=== PATIENT | female | born 1995 | race Caucasian/White ===

== ENCOUNTER 2016-10-30 16:45 | Emergency (ER) | payer OTHER ==
--- NOTE | 2016-10-30 17:18 | UCPHY ---
H & P Time Seen by Provider: 10/30/16 17:11 Patient Type: New HPI/ROS: HPI: 20-year-old female presents to urgent care with chief concern right 3rd finger discomfort and swelling at the finger tip. Onset over the past 3 days. She were acrylic nails for several weeks. They were removed 3 days ago. While she was at the nail spot having her nails removed, the nail as the tissue in cut this surface under my nail. There was minimal bleeding. She was then at the gym where it was germy." Reports mild swelling and discomfort of the right 3rd finger tip. Denies significant erythema, discharge, fever, chills, nausea, vomiting, joint pain. No history of significant infections. She is immunocompetent. Right-hand dominant. Up-to-date with tetanus. ROS:10 point review of systems is negative other than as stated in HPI Physical Exam: Vital signs stable, reviewed by me General: Awake, alert, calm, cooperative. No acute distress. Head: Normalocephalic. Atraumatic. EENT: PERRLA. EOMI. CV: Radial pulses 2+ bilaterally. Brisk cap refill. Neuro: Alert. Oriented x 3. Speech clear. Sensation intact all extremities. Skin: Skin warm, dry. Mild swelling with very minimal erythema of the right 3rd finger tip distal to the DIPJ. No fluctuance or induration. No discharge. Full range of motion. Sensation intact. Musculoskeletal: Strength 5+ all extremities. Allergies/Adverse Reactions: No Known Allergies Allergy (Unverified 10/30/16 17:19) Home Medications: Medication Instructions Recorded Cephalexin [Keflex (RX)] 500 mg PO TID #21 cap 10/30/16 Ocella 3 mg-0.03 mg Tablet 10/30/16 Medical Decision Making ED Course/Re-evaluation: Patient is afebrile and nontoxic. Symptoms are consistent with a very mild cellulitis of the right 3rd finger tip. Patient is very concerned about this. I will prescribe per week of Keflex. Differential Diagnosis: Cellulitis, abscess, paronychia Departure - Departure Disposition: Home, Routine, Self-Care Clinical Impression: Cellulitis Qualifiers: Site of cellulitis: extremity Site of cellulitis of extremity: finger Laterality: right Qualifier Code: (L03.011) Cellulitis of right finger Condition: Good Instructions: Cellulitis (ED) Additional Instructions: Plan: Warm water soaks 3 times daily for 20 minutes Keflex antibiotic as prescribed with food Keep hand elevated while at rest Minimize use of the right 3rd finger over the next several days Follow up with primary care provider later this week for recheck--When you call to schedule appointment, please let the office know you are an "ER follow up" appointment" Referrals: [place],. [Primary Care Provider] - As per Instructions Prescriptions: Cephalexin [Keflex (RX)] 500 mg PO TID #21 cap - PQRS PQRS Measurement: Not applicable
[2016-10-30 17:22] VITALS: BP 118/72; PULSE 68; RESP 16; TEMP 97.9; O2SAT 95
== END 2016-10-30 17:27 | disposition home or self-care (01) ==
LOC: CED 16:45
DX: L03.011 Cellulitis of right finger (principal)
CPT/HCPCS: 99203-PO; G0463-PO

== ENCOUNTER 2016-11-08 14:02 | Emergency (ER) | payer OTHER ==
[2016-11-08 14:12] VITALS: BP 119/72; PULSE 73; RESP 16; TEMP 98.4; O2SAT 100
--- NOTE | 2016-11-08 14:28 | UCPHY ---
H & P Time Seen by Provider: 11/08/16 14:13 Patient Type: Established HPI/ROS: HPI Follow-up right middle finger infection. 20-year-old female by private vehicle with her boyfriend. This patient was seen on October 10 for a small cut and concern over a possible infection developing just underneath the nail of her right middle finger. She was placed on a course of Keflex for 1 week. She presents back to Urgent Care for follow- up. 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 She describes this is isolated pain while typing or tapping her right middle finger tip on a keyboard or table. No other complaints. ROS: Constitutional: No fever, no chills. No weakness. Musculoskeletal: As above. Skin: No rashes. As above. Neurological: No focal weakness or altered sensation. Past medical history: None. No history of diabetes. Social history: Nonsmoker. Here with her boyfriend. Physical Exam: General Appearance: Alert, no distress. This patient is responding to questions appropriately and in full sentences. This patient appears well- hydrated and well-nourished. Eyes: Pupils equal and round no pallor or injection. No lid edema, erythema or injection. Right middle finger exam: There is no significant erythema or warmth. No significant swelling. No evidence of a felon or paronychia. No bleeding. The skin is intact. In comparison to her left middle finger it is symmetrical in size and without any significant visual difference. Capillary refill is normal. The finger is neurologically intact. Neurological: Motor sensory function is grossly intact. Cranial nerves are normal. Gait is normal. Database: EKG: Imaging: Procedures: Emergency department course: After my evaluation of this patient. I explained that she did not required additional antibiotics. I recommended further warm Epson salt soaks as needed. I also recommended that she try to avoid typing with a right middle finger for a few days if it is still causing her pain. Infection precautions and follow -up/return to Urgent Care precautions were reviewed with her. All of her questions were answered. She was discharged in good condition. Differential Diagnosis: The differential diagnosis on this patient includes but is not limited to follow -up visit for possible finger infection. Felon, paronychia, cellulitis, flexor tendon synovitis, other serious bacterial infection unlikely. This represents a partial list of diagnoses considered. These considerations are based on history, physical exam, past history, and reassessment. Smoking Status: Never smoked Constitutional: Initial Vital Signs Temperature (C) 36.9 C 11/08/16 14:05 Heart Rate 73 11/08/16 14:05 Respiratory Rate 16 11/08/16 14:05 Blood Pressure 119/72 11/08/16 14:05 O2 Sat (%) 100 11/08/16 14:05 O2 Delivery Mode Room Air Allergies/Adverse Reactions: No Known Allergies Allergy (Unverified 11/08/16 14:12) Home Medications: Medication Instructions Recorded Ocella 3 mg-0.03 mg Tablet 10/30/16 MDM/Departure - Depart Disposition: Home, Routine, Self-Care Clinical Impression: Follow-up for finger infection Condition: Good Instructions: Paronychia (ED) Additional Instructions: Read and follow provided instructions. Generalized instructions for paronychia were given for automated reasons. You do not have paronychia. Follow-up with your primary care physician in 2-3 days for re-evaluation as needed. Return to the emergency department or urgent care for worsening pain, swelling, discoloration or other serious concerns. Referrals: [place],. [Primary Care Provider] - As per Instructions - PQRS PQRS Measurement: Not applicable.
== END 2016-11-08 14:37 | disposition home or self-care (01) ==
LOC: CED 14:02
DX: L03.011 Cellulitis of right finger (principal)
CPT/HCPCS: 99213-PO; G0463-PO